=== PATIENT | female | born 1955 | race Caucasian/White ===

== ENCOUNTER → 2017-06-28 | Outpatient (CLI) | payer OTHER ==
[~2017-06-28] MED LIST: EFFEXOR XR75 MG PO; KLONOPIN0.5 MG PO; LISINOPRIL-HCTZ1 T18 PO; PHENERGAN25 M1; PHENERGAN25 MG PO; TRAZODONE
--- NOTE | ~2017-06-28 | CR151 ---
[facility] A Service of [facility] RADIOLOGY TEXT RESULTS PATIENT: LIUDMILA SANDOVAL LOCATION: [facility] : 55 UNIT #: [id number] AGE: [address]: NY LYNCH APRN SEX: F ORDER DR: [id number] [facility] [address] [place], [place] [address] [id number] O MR#: [id number] Acc #: [id number] NAME: LIUDMILA SANDOVAL : 1955 SEX: F STUDY DATE/TIME: 06/28/2017 13:36 UNIT: [facility] ROOM: STUDY DESCRIPTION: CR Hip Min 2 Views Rt Attending Physician: Ny Lynch Referring Physician: Ny Lynch Ordering Physician: Physician Non-Staff Primary Care Physician: Negro Sherwood M.D. MEDICAL IMAGING REPORT This report is preliminary unless electronic signature is present EXAM Right hip 06/28/2017. HISTORY 62-year-old female complaining of 3-year history of right hip pain and low back pain. No reported acute injury. TECHNIQUE Two-view right hip series. FINDINGS Minimal degenerative joint space narrowing. Right hip series is otherwise negative. No acute or chronic fracture or additional osseous lesion. IMPRESSION Minimal degenerative right hip joint space narrowing. The exam is otherwise negative. Dictated by... Scott Banda M.D. THIS IS AN ELECTRONICALLY VERIFIED REPORT Scott Banda M.D. at 06/30/2017 8:56 PM GARCIA/jacquelin TD: 06/30/2017 07:46 JOB #: [id number] MEDICAL IMAGING REPORT Page 1 of 1 COPY
--- NOTE | ~2017-06-28 | CR181 ---
[facility] A Service of [facility] & [facility] RADIOLOGY TEXT RESULTS PATIENT: LIUDMILA SANDOVAL LOCATION: [facility] : 55 UNIT #: [id number] AGE: [address]: NY LYNCH APRN SEX: F ORDER DR: [id number] [facility] [address] [place], [place] [address] [id number] O MR#: [id number] Acc #: [id number] NAME: LIUDMILA SANDOVAL : 1955 SEX: F STUDY DATE/TIME: 06/28/2017 13:36 UNIT: [facility] ROOM: STUDY DESCRIPTION: CR Lumbar Spine 2 or 3 Views Attending Physician: Ny Lynch Referring Physician: Ny Lynch Ordering Physician: Physician Non-Staff Primary Care Physician: Negro Sherwood M.D. MEDICAL IMAGING REPORT This report is preliminary unless electronic signature is present EXAM Lumbar spine 06/28 INDICATIONS Low back pain radiating to the right hip chronically for 3 years. No trauma. FINDINGS Three views of the lumbar spine were obtained. Comparison made with 12/03/2013. No fracture or subluxation is seen. There is bilateral facet arthropathy noted at least L5-S1. Vertebral body heights and disc spaces are well maintained. IMPRESSION Facet arthropathy L5-S1. No fracture or subluxation is identified. Dictated by... Elder Do Jr., M.D. THIS IS AN ELECTRONICALLY VERIFIED REPORT Elder Do Jr., M.D. at 06/30/2017 3:47 PM NICK/dali TD: 06/30/2017 10:02 JOB #: [id number] MEDICAL IMAGING REPORT Page 1 of 1 COPY
== END | disposition home or self-care (01) ==
LOC: CRAD 13:18
DX: M54.5 Low back pain (principal); M25.551 Pain in right hip; M46.97 Unspecified inflammatory spondylopathy, lumbosacral region
CPT/HCPCS: 72100; 73502